=== PATIENT | female | born 1995 | race African-American/Black ===

== ENCOUNTER 2024-03-28 13:57 | Emergency (ER) | payer OTHER ==
[~2024-03-28] VITALS: Ht 172.7 cm; Wt 112.0 kg
[2024-03-28] MEDS ORDERED: KETOROLAC TROMETHAMINE 15 MG/ML VIAL ONE (14:27)
[2024-03-28] MEDS ORDERED: MORPHINE SULFATE INJ 4 MG/ML DISP.SYRIN ONE (14:28)
[2024-03-28] MEDS: MORPHINE SULFATE INJ 2 MG/ML DISP.SYRIN IV ONE (14:35)
[2024-03-28] MEDS: KETOROLAC TROMETHAMINE 15 MG/ML VIAL IV ONE (14:36)
[2024-03-28] MEDS ORDERED: IOHEXOL-350 100 ML VIAL IV ONE (14:47)
[2024-03-28] MEDS ORDERED: IV NS 0.9% 250 ML IV ONE (14:48)
[2024-03-28] MEDS ORDERED: CT SWABBABLE VALVE TRANS SET 1 EA INFUS.SET MC ONE (14:48)
[2024-03-28] MEDS ORDERED: HYDR-4209 PO (16:15)
[2024-03-28] MEDS ORDERED: KETO10TA2 PO (16:15)
[2024-03-28 16:26] VITALS: BP 148/78; TEMP 98.4; O2SAT 98
== END 2024-03-28 16:29 | disposition home or self-care (01) ==
LOC: ER 14:00
DX: S43.102A Unspecified dislocation of left acromioclavicular joint, initial encounter (principal); Z79.899 Other long term (current) drug therapy; V89.2XXA Person injured in unspecified motor-vehicle accident, traffic, initial encounter; Y93.89 Activity, other specified; Y92.89 Other specified places as the place of occurrence of the external cause; Y99.8 Other external cause status
CPT/HCPCS: 99285; 72125; 96374; 96375; 73030; 70450; 71275; J2270; J7050; Q9967; J1885

== ENCOUNTER 2024-05-29 17:50 | Emergency (ER) | payer OTHER ==
[~2024-05-29] VITALS: Ht 172.7 cm; Wt 99.8 kg
[~2024-05-29 17:50] MED LIST: HYDR-4209 PO; KETO10TA2 PO
[2024-05-29 18:28] LABS: APPEARANCE,URINE Clear (CLEAR); BILIRUBIN,URINE Negative (NEGATIVE); BLOOD, URINE Negative Ery/uL (NEGATIVE); COLOR,URINE YELLOW (YELLOW); KETONES,URINE Negative (NEGATIVE); LEUKOCYTE ESTERASE ,URINE Negative (NEGATIVE); NITRITE, URINE Negative (NEGATIVE); PH,URINE 7.5 (5.0-8.0); PROTEIN,URINE Negative (NEGATIVE); UGLUCOSE Negative (NEGATIVE); UROBILINOGEN,URINE 0.2 EU/dL (0.2)
[2024-05-29 18:29] LABS: PREGNANCY TEST URINE QUAL NEGATIVE (NEGATIVE)
[2024-05-29] MEDS ORDERED: FLUC150T PO (18:40)
[2024-05-29] MEDS ORDERED: VALA10002 PO (18:40)
[2024-05-29 18:56] VITALS: BP 128/72; TEMP 98; O2SAT 99
== END 2024-05-29 18:56 | disposition home or self-care (01) ==
LOC: ER 17:53
DX: B00.89 Other herpesviral infection (principal)
CPT/HCPCS: 84703-TC